=== PATIENT | male | born 1960 | race Caucasian/White ===

== ENCOUNTER → 2017-01-09 | Outpatient (CLI) | payer OTHER ==
[~2017-01-09] MED LIST: AMLO5TAB2 PO; FLUO20CA35 PO; HYDR-5688 PO; METH10TA4 PO; VITAMIN B12 SL
== END | disposition home or self-care (01) ==
LOC: C.LABSPEC 14:57
PROVIDERS: ATTEND Family Medicine
DX: N39.0 Urinary tract infection, site not specified (principal)

== ENCOUNTER → 2017-01-10 | Outpatient (CLI) | payer OTHER ==
--- NOTE | 2017-01-10 07:58 | DIAGNOSTIC IMAGING REPORT ---
Limited abdominal ultrasound ABDOMEN FOR HERNIA CLINICAL HISTORY: L INGUINAL HERNIA, PT TO X-RAY AFTER PLEASE hernia TECHNIQUE: Real-time ultrasound. Post Valsalva COMPARISON STUDY: 10/08/2013 FINDINGS: Fat-containing left inguinal hernia. This is reducible. No evidence of bowel containment. IMPRESSION: Reducible fat-containing left inguinal hernia. No evidence for bowel containment. Electronically signed by: Richard Dupont M.D. 01/10/2017 7:57 AM Dictated Date/Time: 01/10/2017 7:56 AM
--- NOTE | 2017-01-10 08:06 | DIAGNOSTIC IMAGING REPORT ---
[facility]UB CLINICAL HISTORY: L INGUINAL HERNIA, PT WENT TO ULTRA 1,LAB AFTER PLEASE pain COMPARISON STUDY: 10/08/2013 FINDINGS: Small 3 mm calcification lower pole right kidney. Renal study shows otherwise are unremarkable. Bowel pattern is nonobstructive. IMPRESSION: Small calcification lower pole right kidney. Otherwise negative study Electronically signed by: Richard Dupont M.D. 01/10/2017 8:05 AM Dictated Date/Time: 01/10/2017 8:04 AM
[2017-01-10 09:32] LABS: BASO % 0.3 %; BASO ABS # 0.02 K/uL (0-0.2); COMPLETE YES; EOS % 5.6 %; HEMATOCRIT 46.2 % (42-52); IG% 0.2 %; LYMPH % 42.3 %; LYMPH ABS # 2.57 K/uL (1.2-3.4); MEAN CELL VOLUME 90.8 fL (80-100); MEAN CORPUSCULAR HEMOGLOBIN 32.4 pg (25-34); MEAN CORPUSCULAR HGB CONC 35.7 g/dl (32-36); MEAN PLATELET VOLUME 9.5 fL (7.4-10.4); MONO % 10.4 %; NEUT % 41.2 %; PLATELET COUNT 257 K/uL (130-400); RED BLOOD COUNT 5.09 M/uL (4.7-6.1); WHITE BLOOD COUNT 6.07 K/uL (4.8-10.8)
[2017-01-10 09:48] LABS: ALT/SGPT 49 U/L (12-78); AST/SGOT 28 U/L (15-37); BLOOD UREA NITROGEN 17 mg/dl (7-18); BUN/CREATININE RATIO 17.7 (10-20); CALCIUM 8.6 mg/dl (8.5-10.1); CARBON DIOXIDE 22 mmol/L (21-32); CHLORIDE 109 mmol/L (98-107); CREATININE 0.94 mg/dl (0.60-1.40); GLUCOSE 127 mg/dl (70-99); POTASSIUM 3.9 mmol/L (3.5-5.1); SODIUM 142 mmol/L (136-145)
[2017-01-10 09:57] LABS: ALB/GLOB RATIO 1.3 (0.9-2); ALKALINE PHOSPHATASE 86 U/L (45-117); TOTAL IRON BINDING CAPACITY 452 mcg/dl (250-450)
[2017-01-11 23:24] LABS: GLIADIN DEAMIDATED IgA AB 38 UNITS (<20); GLIADIN DEAMIDATED IgG AB 9 UNITS (<20)
[2017-01-14 04:03] LABS: 18KDIGG BAND NONREACTIVE (NONREACTIVE); 23KDIGG BAND NONREACTIVE (NONREACTIVE); 23KDIGM BAND NONREACTIVE (NONREACTIVE); 28KDIGG BAND NONREACTIVE (NONREACTIVE); 30KDIGG BAND NONREACTIVE (NONREACTIVE); 39KDIGG BAND NONREACTIVE (NONREACTIVE); 39KDIGM BAND NONREACTIVE (NONREACTIVE); 41KDIGG BAND NONREACTIVE (NONREACTIVE); 41KDIGM BAND NONREACTIVE (NONREACTIVE); 45KDIGG BAND NONREACTIVE (NONREACTIVE); 58KDIGG BAND NONREACTIVE (NONREACTIVE); 66KDIGG BAND NONREACTIVE (NONREACTIVE); 93KDIGG BAND NONREACTIVE (NONREACTIVE)
== END | disposition home or self-care (01) ==
LOC: C.ULTR 07:18
PROVIDERS: ATTEND Family Medicine
DX: R53.83 Other fatigue (principal); M25.50 Pain in unspecified joint; K40.90 Unilateral inguinal hernia, without obstruction or gangrene, not specified as recurrent

== ENCOUNTER → 2017-02-22 | Outpatient (CLI) | payer OTHER ==
--- NOTE | 2017-02-22 12:56 | EXERCISE STRESS ECHO ---
*NOTICE TO RECEIVING [employer] This information is strictly Confidential and protected under [place] law. [place] law prohibits you from making any further disclosure of this information unless further disclosure is expressly permitted by the written consent of the person to whom it pertains or is authorized by law. A general authorization for the release of medical or other information is not sufficient for this purpose. Hospital accepts no responsibility if the information is made available to any other person, INCLUDING THE PATIENT. Interpretation Summary * Name: LISANDRA RO Study Date: 02/22/2017 10:37 AM BP: 121/91 mmHg * Patient Location: [facility] HR: 79 * : 1960 (M/d/yyyy) Gender: Male Height: 74 in * Age: 56 yrs Ethnicity: [place] Weight: 230 lb * Ordering Physician: Juve Perez * Referring Physician: Juve Perez. * Performed By: Lilliana Bourne RDCS * * Reason For Study: CHEST PAIN * BSA: 2.3 m2 * History: CHEST PAIN * -- Conclusions -- * There is mild concentric left ventricular hypertrophy. * Left ventricular systolic function is normal. * Grade I diastolic dysfunction, (abnormal relaxation pattern). * Diagnostic exercise echocardiogram without evidence of inducible ischemia Procedure Details * ECHOEX, CPT #[id number] Left Ventricular Findings with Stress * Diagnostic exercise echocardiogram without evidence of inducible ischemia Left Ventricle * The left ventricle is normal in size. * There is mild concentric left ventricular hypertrophy. * Ejection Fraction = 50-55%. * Left ventricular systolic function is normal. * Grade I diastolic dysfunction, (abnormal relaxation pattern). * The left ventricular wall motion is normal. Right Ventricle * The right ventricle is normal in size and function. Atria * The left atrial size is normal. * Right atrial size is normal. Mitral Valve * The mitral valve anatomy is normal. * Significant mitral regurgitation is absent. Tricuspid Valve * The tricuspid valve is not well visualized, but is grossly normal. * There is trace tricuspid regurgitation. Aortic Valve * The aortic valve is normal in structure and function. * No hemodynamically significant valvular aortic stenosis. * There is no significant aortic regurgitation. Great Vessels * The aortic root is normal size. * The aortic root and proximal ascending aorta are normal sized. Pericardium * There is no pericardial effusion. Stress Parameters * Normal baseline electrocardiogram. * The stress portion of this study was personally supervised by the undersigned interpreting physician. * Rest heart rate was '79' BPM. * Rest blood pressure was '121/91' * Maximum heart rate achieved was 160 bpm. * Maximum heart rate was 97 % of maximum age-predicted heart rate. * Maximum blood pressure was '217/54' * Total exercise time was '9:00' * Maximum exercise MET level achieved was '10.10' METS * Maximum treadmill speed was '3.40' miles per hour. * Maximum treadmill elevation was '14.00'% grade. * Exercise was terminated due to 'ACHIEVING TARGET HR' Left Ventricular Findings with Stress * Normal baseline EKG without development of ischemic changes. Normal baseline echocardiogram without inducible wall motion abnormalities. Mild dyspnea at peak exertion Estrada treadmill score: 9 (low risk) Normal heart rate recovery MMode 2D Measurements and Calculations IVSd 1.5 cm IVSs 1.8 cm LVIDd 4.2 cm LVIDs 3.0 cm LVPWd 1.2 cm LVPWs 1.6 cm IVS/LVPW 1.2 FS 26.9 % EDV(Teich) 76.7 ml ESV(Teich) 36.1 ml EF(Teich) 52.9 % EDV(cubed) 71.9 ml ESV(cubed) 28.1 ml EF(cubed) 61.0 % % IVS thick 27.2 % % LVPW thick 27.6 % LV mass(C)d 207.5 grams LV mass(C)dI 90.0 grams/m\S\2 LV mass(C)s 201.5 grams LV mass(C)sI 87.4 grams/m\S\2 SV(Teich) 40.6 ml SI(Teich) 17.6 ml/m\S\2 SV(cubed) 43.8 ml SI(cubed) 19.0 ml/m\S\2 Ao root diam 3.7 cm Ao root area 10.6 cm\S\2 LA dimension 3.8 cm LA/Ao 1.0 LVAd ap4 33.8 cm\S\2 LVLd ap4 9.5 cm EDV(MOD-sp4) 99.6 ml EDV(sp4-el) 102.2 ml LVAs ap4 19.9 cm\S\2 LVLs ap4 7.5 cm ESV(MOD-sp4) 48.8 ml ESV(sp4-el) 45.1 ml EF(MOD-sp4) 51.1 % EF(sp4-el) 55.9 % LVAd ap2 33.0 cm\S\2 LVLd ap2 9.2 cm EDV(MOD-sp2) 99.1 ml EDV(sp2-el) 101.3 ml LVAs ap2 21.0 cm\S\2 LVLs ap2 7.6 cm ESV(MOD-sp2) 50.6 ml ESV(sp2-el) 49.3 ml EF(MOD-sp2) 49.0 % EF(sp2-el) 51.3 % LVLd %diff -3.65 % EDV(MOD-bp) 98.6 ml LVLs %diff 1.4 % ESV(MOD-bp) 50.2 ml EF(MOD-bp) 49.1 % SV(MOD-sp4) 50.9 ml SI(MOD-sp4) 22.1 ml/m\S\2 SV(MOD-sp2) 48.5 ml SI(MOD-sp2) 21.0 ml/m\S\2 SV(MOD-bp) 48.4 ml SI(MOD-bp) 21.0 ml/m\S\2 SV(sp4-el) 57.1 ml SI(sp4-el) 24.8 ml/m\S\2 SV(sp2-el) 51.9 ml SI(sp2-el) 22.5 ml/m\S\2 Doppler Measurements and Calculations MV E max zee 56.8 cm/sec MV A max zee 63.5 cm/sec MV E/A 0.89 MV dec time 0.23 sec Ao V2 max 129.9 cm/sec Ao max PG 6.8 mmHg Ao max PG (full) 3.1 mmHg LV V1 max PG 3.7 mmHg LV V1 max 96.0 cm/sec
== END | disposition home or self-care (01) ==
LOC: C.CPL 10:12
PROVIDERS: ATTEND Family Medicine
DX: R07.9 Chest pain, unspecified (principal)

== ENCOUNTER → 2017-03-21 | Day surgery (SDC) | payer OTHER ==
[2017-02-22 13:28] VITALS: Ht 190.5 cm; Wt 102.3 kg
[~2017-03-21] VITALS: Ht 190.5 cm; Wt 102.3 kg
[~2017-03-21] MED LIST changes: +ALBUTEROL HFA INHALER 8.5 GM INH ONE; +ATROPINE SULFATE 0.1 MG/ML 5ML SYR IV PRN; +BUPIVACAINE/EPINEPHRINE 0.5% MPF 1:200,000 30 ML VIAL ONE; +CEFAZOLIN 2000 MG/60 ML D5W IV SCH; +DEXAMETHASONE SOD INJ 4 MG/ML VIAL ONE; +EpHEDrine SULFATE 50MG/5ML SYR ONE; +EpHEDrine SULFATE INJ 50 MG/ML AMP IV PRN; +FENTANYL CITRATE INJ 50 MCG/1 ML 2 ML VIAL IV PRN; +FENTANYL CITRATE INJ 50 MCG/1 ML 2 ML VIAL ONE; +HYDROCODONE/ACETAMOPHEN 5/325MG TAB PO PRN; +LACTATED RINGER'S 1000ML 1,000 ML IV SCH; +LIDOCAINE HCL 2% 2 ML VIAL (20MG/ML) ONE; +MIDAZOLAM HCL 1 MG/ML 2ML VIAL ONE; +NURSING VERBAL MED ORDER ONE; +ONDANSETRON INJ 2 MG/ML 2 ML VIAL IV PRN; +ONDANSETRON INJ 2 MG/ML 2 ML VIAL ONE; +PROPOFOL IV EMULSION 10 MG/ML 20 ML VIAL IV ONE; +SODIUM CHLORIDE 0.9% 1000ML 1,000 ML IV SCH
--- NOTE | 2017-03-21 09:34 | History & Physical Bridge Note ---
H&P Re-Evaluation Bridge Note: I have examined the patient, reviewed the History & Physical and in the interval since the performance of the History & Physical I have noted the following changes of clinical significance: No changes noted
--- NOTE | 2017-03-21 09:54 | Discharge Instructions ---
Discharge Instructions Date of Service Mar 21, 2017. Admission Reason for Admission: Left Inguinal Hernia Discharge Discharge Diagnosis / Problem: Left Inguinal Hernia Discharge Goals Goal(s): Decrease discomfort, Improve function Activity Recommendations Activity Limitations: as noted below Lifting Limitations: no more than 10 pounds Exercise/Sports Limitations: until after follow-up appointment May Resume Sexual Activity: after follow-up appointment Shower/Bathe: tomorrow . Instructions / Follow-Up Instructions / Follow-Up Please follow-up with Dr. Killian in the office in 1-2 weeks. Please call the office at [phone] with any questions or concerns. Current Hospital Diet Patient's current hospital diet: Discharge Diet Recommended Diet: Regular Diet Pending Studies Studies pending at discharge: no Medical Emergencies . Who to Call and When: Medical Emergencies: If at any time you feel your situation is an emergency, please call 911 immediately. . Non-Emergent Contact Non-Emergency issues call your: Primary Care Provider, Surgeon Call Non-Emergent contact if: temperature is above 101.5, your pain is not controlled, wound has increased drainage, wound has increased redness . "Provider Documentation" section prepared by Leatha Griffith. . VTE Core Measure Inpt VTE Proph given/why not?: SCD's
--- NOTE | 2017-03-21 11:01 | [facility] Operative Report ---
Operative Report Operative Date Mar 21, 2017. Pre-Operative Diagnosis Left inguinal hernia Post-Operative Diagnosis direct and indirect left inguinal hernias Procedure(s) Performed open left inguinal hernia repair with mesh Surgeon Dr. Killian Supply Assistant Surgeon(s) Leatha Holly PA-C Estimated Blood Loss 10 mL Findings direct and indirect left inguinal hernias. Specimens None Anesthesia LMA Complication(s) None Disposition Recovery Room / PACU I attest to the content of the Intraoperative Record and any orders documented therein. Any exceptions are noted below.
--- NOTE | 2017-03-21 11:06 | Anesthesia Progress Nt - [facility] ---
Anesthesia Post Op Note Date & Time Mar 21, 2017 at 11:05 Vital Signs Pain Intensity: 0 Vital Signs Past 12 Hours Date Time Temp Pulse Resp B/P Pulse Ox O2 Delivery O2 Flow Rate FiO2 03/21/17 08:11 36.7 81 16 121/92 95 Room Air Notes Mental Status: alert / awake / arousable, participated in evaluation Pt Amnestic to Procedure: Yes Nausea / Vomiting: adequately controlled Pain: adequately controlled Airway Patency, RR, SpO2: stable & adequate BP & HR: stable & adequate Hydration State: stable & adequate Anesthetic Complications: no major complications apparent
[2017-03-21 11:35] VITALS: TEMP 36.7
--- NOTE | 2017-03-21 11:47 | OPERATIVE REPORT ---
DATE OF OPERATION: 03/21/2017 PREOPERATIVE DIAGNOSIS: Left inguinal hernia. POSTOPERATIVE DIAGNOSIS: Direct and indirect left inguinal hernia. PROCEDURES: Open left inguinal hernia repair with mesh and ilioinguinal neurolysis. SURGEON: Dr. Killian. HYDRAULIC REPAIRER: Leatha Griffith PA-C. ESTIMATED BLOOD LOSS: Approximately 10 mL. COMPLICATIONS: No immediate. ANESTHESIA: General with laryngeal mask airway. OPERATION AND FINDINGS: OPERATIVE NOTE: After informed consent was obtained, the patient was taken to the operating suite and placed in supine position. After successful placement of laryngeal mask airway left groin was shaved and sterilely prepped and draped in usual fashion. An inguinal incision was made with a 15 blade scalpel and carried down through the soft tissue using electrocautery. The external oblique aponeurosis was skeletonized and a small incision made with a fresh blade. Metzenbaum scissors were used to extend this down through the external ring as well as for several centimeters proximally. Once in the inguinal canal, we were able to bluntly dissect the cord and cord structures away from surrounding tissue. We were able to gently elevate off the pubic bone and place a Moselle around it. Once we did this, we immediately noted a moderate sized direct inguinal hernia. We then used blunt dissection and small amounts of electrocautery to examine the cord itself. There was a small indirect hernia sac as well which were able to gently peel away from the cord structures and dunk it back down into the abdominal cavity. No other abnormalities were seen. Following this, we placed a piece of polypropylene mesh as an onlay. It was a pre-keyholed mesh that was secured distally to Quinn's ligament, laterally along the shelving portion of Poupart's ligament and medially along the midline musculature. The "arms" of the mesh were wrapped around behind the cord and cord structures and sutured to underlying muscle. The suture used for the mesh was 0 Ethibond. We thoroughly irrigated the wound. The mesh did not impinge upon the cord structures. We did place Marcaine around the edges of the mesh for postoperative analgesia. There was adequate hemostasis at the end of the case. We closed the external oblique aponeurosis with 2-0 Vicryl in a running fashion. Soft tissue was irrigated and closed with 3-0 Vicryl and the skin closed with 4-0 Monocryl. Some additional Marcaine was injected for postoperative analgesia and skin glue used as a dressing. The patient was awakened, extubated, and transferred to recovery room in stable condition. I attest to the content of the Intraoperative Record and any orders documented therein. Any exceptio ns are noted below.
[2017-03-21 12:10] VITALS: BP 129/88; PULSE 84; O2SAT 94
--- NOTE | 2017-03-21 12:58 | Anesthesiology Progress Note ---
Anesthesia Progress Note Date of Service Mar 21, 2017. Progress Notes Pt s/p L inguinal hernia repair. Pt received bupivacaine with epi for local at the site of incision towards the end of procedure. Pt stated having signs of a L femoral nerve block in recovery. Pt and family were told about the likelihood of inadvertent L femoral nerve block, which should last approximately 8 hours. The pt was instructed to go home with crutches and to use crutches for ambulation until his symptoms resolved. Pt is otherwise stable for discharge.
== END | disposition home or self-care (01) ==
LOC: X.SURG 08:01
PROVIDERS: ATTEND Surgery
DX: K40.90 Unilateral inguinal hernia, without obstruction or gangrene, not specified as recurrent (principal); Z68.28 Body mass index [BMI] 28.0-28.9, adult; Z98.890 Other specified postprocedural states; Z82.49 Family history of ischemic heart disease and other diseases of the circulatory system; Z83.3 Family history of diabetes mellitus

== ENCOUNTER → 2018-04-05 | Outpatient (CLI) | payer OTHER ==
[~2018-04-05] MED LIST changes: -ALBUTEROL HFA INHALER 8.5 GM INH ONE; -ATROPINE SULFATE 0.1 MG/ML 5ML SYR IV PRN; -BUPIVACAINE/EPINEPHRINE 0.5% MPF 1:200,000 30 ML VIAL ONE; -CEFAZOLIN 2000 MG/60 ML D5W IV SCH; -DEXAMETHASONE SOD INJ 4 MG/ML VIAL ONE; -EpHEDrine SULFATE 50MG/5ML SYR ONE; -EpHEDrine SULFATE INJ 50 MG/ML AMP IV PRN; -FENTANYL CITRATE INJ 50 MCG/1 ML 2 ML VIAL IV PRN; -FENTANYL CITRATE INJ 50 MCG/1 ML 2 ML VIAL ONE; -HYDR-5688 PO; -HYDROCODONE/ACETAMOPHEN 5/325MG TAB PO PRN; -LACTATED RINGER'S 1000ML 1,000 ML IV SCH; -LIDOCAINE HCL 2% 2 ML VIAL (20MG/ML) ONE; -MIDAZOLAM HCL 1 MG/ML 2ML VIAL ONE; -NURSING VERBAL MED ORDER ONE; -ONDANSETRON INJ 2 MG/ML 2 ML VIAL IV PRN; -ONDANSETRON INJ 2 MG/ML 2 ML VIAL ONE; -PROPOFOL IV EMULSION 10 MG/ML 20 ML VIAL IV ONE; -SODIUM CHLORIDE 0.9% 1000ML 1,000 ML IV SCH
[2018-04-05 15:45] LABS: BASO % 0.3 %; BASO ABS # 0.02 K/uL (0-0.2); EOS % 4.3 %; EOS ABS # 0.27 K/uL (0-0.5); HEMATOCRIT 44.8 % (42-52); HEMOGLOBIN 16.3 g/dL (14.0-18.0); IG# 0.01 K/uL (0.00-0.02); LYMPH % 29.6 %; LYMPH ABS # 1.85 K/uL (1.2-3.4); MEAN CELL VOLUME 91.6 fL (80-100); MEAN CORPUSCULAR HEMOGLOBIN 33.3 pg (25-34); MEAN CORPUSCULAR HGB CONC 36.4 g/dl (32-36); MEAN PLATELET VOLUME 9.9 fL (7.4-10.4); MONO % 11.1 %; MONO ABS # 0.69 K/uL (0.11-0.59); NEUT % 54.5 %; PLATELET COUNT 226 K/uL (130-400); RED CELL DISTRIBUTION WIDTH CV 13.3 % (11.5-14.5); RED CELL DISTRIBUTION WIDTH SD 44.2 fL (36.4-46.3); WHITE BLOOD COUNT 6.24 K/uL (4.8-10.8)
[2018-04-05 16:46] LABS: ALT/SGPT 43 U/L (12-78); AST/SGOT 27 U/L (15-37); BLOOD UREA NITROGEN 14 mg/dl (7-18); CALCIUM 8.4 mg/dl (8.5-10.1); CARBON DIOXIDE 24 mmol/L (21-32); CHOLESTEROL 232 mg/dl (0-200); CREATININE 0.93 mg/dl (0.60-1.40); GLUCOSE 118 mg/dl (70-99); POTASSIUM 3.5 mmol/L (3.5-5.1); SODIUM 138 mmol/L (136-145); TOTAL PROTEIN 7.4 gm/dl (6.4-8.2); URIC ACID 7.1 mg/dl (2.6-7.2)
[2018-04-05 16:55] LABS: ALKALINE PHOSPHATASE 90 U/L (45-117); LDL CHOLESTEROL CALCULATED 150 mg/dl; TRANSFERRIN 327 mg/dl (200-360)
[2018-04-06 06:33] LABS: HEMOGLOBIN A1C 5.4 % (4.5-5.6)
== END | disposition home or self-care (01) ==
LOC: C.LAB 14:05
PROVIDERS: ATTEND Family Medicine
DX: R73.09 Other abnormal glucose (principal); E55.9 Vitamin D deficiency, unspecified; D51.9 Vitamin B12 deficiency anemia, unspecified; E78.9 Disorder of lipoprotein metabolism, unspecified; R53.83 Other fatigue

== ENCOUNTER 2021-01-08 08:33 | Observation (INO) ==
--- NOTE | 2020-12-24 14:51 | PAT Medication Instructions ---
Medication Instructions Date of Service December 24, 2020 Home Medications Medication Instructions Recorded meloxicam 15 mg tablet 15 mg PO DAILY #30 tab 12/04/20 amlodipine 2.5 mg PO QAM fluoxetine 20 mg PO QAM methylphenidate HCl 10 mg PO BID meloxicam 15 mg tablet 15 mg PO DAILY Cholesterol Medication 1 tab PO QAM ASK your surgeon for instructions meloxicam 15 mg tablet 15 mg PO DAILY DO NOT take the morning of surgery methylphenidate HCl 10 mg PO BID Take morning of surgery With a small sip of water, OTHERWISE NOTHING TO EAT OR DRINK AFTER MIDNIGHT: amlodipine 2.5 mg PO QAM fluoxetine 20 mg PO QAM Take evening before surgery methylphenidate HCl 10 mg PO BID Other Notes Please contact us with further information regarding following medication: Cholesterol Medication 1 tab PO QAM If you have any questions please call us at [phone] or [phone] or [phone] or [phone]
--- NOTE | 2020-12-28 08:28 | Anesthesiology Consultation ---
Date of Service December 28, 2020 Assessment & Plan (1) Encounter for pre-operative examination: COVID Status: As of 12/28 assessment, patient denies travel to endemic area, known exposure/sick contacts, or symptoms of COVID19. Patient instructed that they and their household members must follow strict social distancing guidelines, wear a mask in public and avoid travel/events/gatherings for 14 days prior to surgery. Preoperative COVID19 testing to be completed prior to surgery per surgeon's arrangements (01/04). Patient made aware to self-isolate as much as possible between COVID testing and surgery. Patient Chart Review Chart Review: Acceptable Risk for Surgery and Patient seen in Pre Admission Testing Teaching & Discussion Instructed NPO after midnight before surgery, except medications with 15 cc of water. Medication instructions provided according to the PAT guidelines. History Surgery Operation Date: 01/08/21 09:35 Proposed Procedures p Right Total Knee Arthroplasty - Hermilo Henry MD Height/Weight Height: 6 ft 2 in Weight: 119.2 kg Allergies Allergy/AdvReac Type Severity Reaction Status Date / Time No Known Allergies Allergy Unknown Verified 12/24/20 07:38 Medications Home Medications Medication Instructions Recorded Confirmed Last Taken amlodipine 2.5 mg PO QAM 04/25/19 12/24/20 05/09/19 fluoxetine 20 mg PO QAM 04/25/19 12/24/20 05/09/19 methylphenidate HCl 10 mg PO BID 04/25/19 12/24/20 05/09/19 meloxicam 15 mg tablet 15 mg PO DAILY #30 tab 12/04/20 12/24/20 Unknown atorvastatin 40 mg PO QAM 12/28/20 12/28/20 Unknown Past Medical History Medical History Attention deficit disorder (ADD) History of kidney stones Hyperlipidemia Hypertension Restless leg syndrome Exercise / Class Metabolic Activity II 4-5 Yardwork/Stairs/Walk up hill Past Family History Family History Sister Family history of diabetes mellitus Grandmother (Paternal) Family history of diabetes mellitus Grandmother (Maternal) Family history of diabetes mellitus Past Surgical History Surgical History H/O knee surgery RT/LEFT KNEE (MULTIPLE SURGERIES) H/O wrist surgery LEFT History of arthroscopy History of colonoscopy History of cystoscopy REMOVAL OF KIDNEY STONES WITH STENTS History of herniorrhaphy INGUINAL History of lithotripsy History of tonsillectomy History of tooth extraction Hx of LASIK Past Anesthesia History No Hx of Anesthesia Complications and No Family Hx of Anesthesia Complications History of PONV No Hx of PONV and Hx of Motion Sickness Social History Smoking Status: Never smoker Do You Dip or Chew Tobacco: No Hx Alcohol Use: No Hx Substance Use: No substance use type: does not use Review of Systems Pt denies any recent chest pain, shortness of breath, palpitations, fever, URI, or uncontrolled acid reflux. +chronic cough, takes Mucinex OTC Physical Exam Vital Signs BP: 114/83 P: 85bpm SPO2: 95% RA T: 98.2 F R: 16 ENMT Mouth: + dental restorations (three crowns, R side upper and lower); no chipped teeth and no loose teeth Thyromental Distance: > or= 3.5 Finger Breadths Mallampati Class: I Neck normal visual inspection; neck extension not limited Respiratory normal respiratory effort, lungs clear to auscultation Cardiovascular RRR, no murmur, no edema Testing Laboratory Results PT 10.9 Seconds (9.0-12.0) 12/28/20 08:40 INR 1.0 (0.9-1.1) 12/28/20 08:40 APTT 28.0 Seconds (21.0-31.0) 12/28/20 08:40 Blood Type A Positive 12/28/20 08:40 Antibody Screen NEGATIVE 12/28/20 08:40 11/24/20 WBC: 7.46 H/H: 15.7/47.5 PLATELETS: 229 SODIUM: 143 POTASSIUM: 4.8 CHLORIDE: 107 CO2: 25 BUN: 15 CREATININE: 1.10 GLUCOSE: 114 Electrocardiogram Date: 12/28/20 Findings: + NSR @ (83bpm) Chest X-Ray Date: 12/28/20 Findings: + NAD
--- NOTE | 2020-12-28 09:14 | XRay Report ---
XR chest Pre-admission PA/Lat CLINICAL HISTORY: Preoperative evaluation. COMPARISON STUDY: Chest radiograph April 24, 2019. FINDINGS: Lung volumes are normal. Lungs are clear. There is no pneumothorax or pleural effusion. Car diac size is normal. Mediastinal contours are normal. There is no evidence for pulmonary edema. IMPRESSION: No acute cardiopulmonary findings. ACT 112: Negative or not required by law. Electronically signed by: Flavio De Jesus M.D. 12/28/2020 9:13 AM
[2020-12-28 09:22] LABS: Prothrombin Time 10.9 Seconds (9.0-12.0)
--- NOTE | 2020-12-28 13:30 | Electrocardiogram Report ---
Test Reason : Blood Pressure : / mmHG Vent. Rate : 083 BPM Atrial Rate : 083 BPM P-R Int : 178 ms QRS Dur : 088 ms QT Int : 356 ms P-R-T Axes : 066 068 048 degrees QTc Int : 418 ms Normal sinus rhythm Normal ECG When compared with ECG of 24-APR-2019 17:33, No significant change was found Confirmed by Allan Arcos ([id number]) on 12/28/2020 1:30:37 PM Referred By: Hermilo Henry Confirmed By:Allan Arcos
--- NOTE | 2021-01-02 13:52 | History and Physical Report ---
DATE OF ADMISSION: 01/08/2021 CHIEF COMPLAINT: Right knee pain discomfort and swelling. HISTORY OF PRESENT ILLNESS: A 60-year-old gentleman who has had a long history of right knee problem. He injured his knee initially back in the early 80s and had a pretty extensive reconstruction done in [place] in 1979. He has had intermittent problems with his knee ever since. He has had this knee scoped 3 or [address] Barr. The last time over 10 years ago. He has continued to be bothered by pain and discomfort. Injections have become less successful over time. He is just kind of fed up with this and would like to have his knee fixed. He is not interested in any further conservative care. Knee hurts him all the time. The more he walks, the more it hurts, the more it swells and the more he limps. PAST MEDICAL HISTORY: 1. Elevated cholesterol. 2. Hiatal hernia. 3. Sciatica. 4. Kidney stones. PAST SURGICAL HISTORY: Include: 1. Multiple right knee surgeries, the first one done in 1979 and 3-4 scopes after that. 2. Wrist surgery. 3. Hand surgery. ALLERGIES: None. CURRENT MEDICATIONS: Include: 1. Methylphenidate 10 mg a day. 2. Flomax. 3. Cholesterol medicine. SOCIAL HISTORY: A 60-year-old male. Fairly active. He swims regularly. Does not smoke. No alcohol intake. FAMILY HISTORY: Noncontributory. REVIEW OF HISTORY: Negative for diabetes, neurologic problem, vascular problems or bleeding disorders. No chest pain or shortness of breath. No history of DVT or PE. No known bleeding problems. PHYSICAL EXAMINATION GENERAL: Healthy, pleasant, middle-aged male. Looks to be in good health. HEENT: Benign. NECK: Supple with no lymphadenopathy. LUNGS: Clear to auscultation. HEART: Has a regular rate and rhythm. ABDOMEN: Soft, nontender, nondistended. EXTREMITIES: Grossly neurovascularly intact except as follows. Examination of the right knee reveals the patient ambulates with a slight bit of a limp. He has got multiple large and long incisions on his knee one anterior medial with deviation of the medial side and then one more laterally. He has got a small knee effusion. Range of motion is about 10 degrees short of full extension to 120 degrees of flexion. He has got a little bit of laxity to Ce testing. No real varus or valgus instability. No pain with hip motion. X-RAYS: X-rays of the right knee reviewed. X-rays show advanced right knee tricompartment DJD. He has got degenerative changes in all 3 compartments with chondrocalcinosis. He has got osteophytes in all 3 compartments. He has evidence of previous ACL reconstruction with the tibial tunnel fairly anterior. ASSESSMENT: A 60-year-old male with a history of multiple knee operations in the past with advanced tricompartment degenerative joint disease. He has failed all conservative treatment and would like to have his right knee replaced. PLAN: We will take him to the operating room and do right total knee replacement. The risks and benefits of this procedure were explained to the patient including but not limited to DVT, PE, , infection, neurological injury, vascular injury, bleeding problem, pain, limited range of motion, stiffness, failure to his relieve symptoms, incomplete relief of symptoms, need for further surgery in future, fracture, leg length inequality, nerve palsy, etc. The patient understands and desires to proceed. Informed consent was obtained. As far as incisions, we will likely use a more medial one, I think lateral once too far lateral fluoroscopy used for knee replacement. We will likely put some vancomycin in his cement due to his history of multiple knee surgeries on this side. He is planning to be discharged home using [facility] home health program.
[~2021-01-08 08:33] MED LIST changes: +ACETAMINOPHEN 500 MG TAB PO SCH; -AMLO5TAB2 PO; +BUPIVACAINE 0.5 % 5 MG/1 ML PF 10ML VIAL ONE; +BUPIVACAINE LIPOSOME/PF 266 MG, BUPIVACAINE/EPINEPHRINE 50 ML, SODIUM CHLORIDE 0.9% 30 ... INFIL SCH; +FAMOTIDINE 20 MG TAB PO SCH; -FLUO20CA35 PO; +GABAPENTIN 600 MG DOSE PO SCH; +LR 500ML BOLUS, THEN 15ML/HR IV SCH; +LR 60ML/HR IV SCH; -METH10TA4 PO; +METOCLOPRAMIDE HCL 10 MG TABLET PO SCH; +ROPIVACAINE 0.5% 5 MG/ML 30 ML VIAL ONE; +TRANEXAMIC ACID / 0.7% NACL 1,000 MG/100 ML BAG IV SCH; -VITAMIN B12 SL
--- NOTE | 2021-01-08 08:43 | History & Physical Bridge Note ---
Date of Service January 08, 2021 History & Physical Bridge Note I have examined the patient, reviewed the History & Physical and in the interval since the performance of the History & Physical I have noted the following changes of clinical significance: no changes noted
[2021-01-08] MEDS ORDERED: LIDOCAINE 2% 20 MG/ML 5 ML SYR IV ONE (09:15)
[2021-01-08] MEDS ORDERED: ONDANSETRON INJ 2 MG/ML 2 ML VIAL ONE (09:15)
[2021-01-08] MEDS ORDERED: PROPOFOL IV EMULSION 10 MG/ML 20 ML VIAL IV ONE (09:15)
[2021-01-08] MEDS ORDERED: MIDAZOLAM HCL 1 MG/ML 2ML VIAL ONE (09:16)
[2021-01-08] MEDS ORDERED: ATROPINE SULFATE 0.1 MG/ML 10ML SYR IV PRN (10:11)
[2021-01-08] MEDS ORDERED: ePHEDrine sulfate 50 MG/ML AMP IV PRN (10:11)
[2021-01-08] MEDS ORDERED: HYDROmorphone INJ 1 MG/ML SYRINGE IV PRN (10:11)
[2021-01-08] MEDS ORDERED: ONDANSETRON INJ 2 MG/ML 2 ML VIAL IV PRN ×2 (10:11→14:13)
[2021-01-08] MEDS ORDERED: KETOROLAC 30 MG/ML VIAL IV PRN (10:11)
[2021-01-08] MEDS ORDERED: BUPIVACAINE LIPOSOME 1.3% 266 MG/20 ML VIAL ONE (10:39)
[2021-01-08] MEDS ORDERED: BUPIVACAINE 0.25% 30 ML VIAL ONE (10:39)
[2021-01-08] MEDS ORDERED: BACITRACIN INJ 50,000 UNIT VIAL ONE (10:39)
[2021-01-08] MEDS ORDERED: SODIUM CHLORIDE 0.9% PF 50 ML VIAL ONE (10:39)
[2021-01-08] MEDS ORDERED: EPINEPHrine INJ 1 MG/ML AMP ONE (10:39)
[2021-01-08] MEDS: ceFAZolin 2000MG 2,000 MG/15 ML SYR IV SCH ×2 (10:51→18:07)
[2021-01-08] MEDS ORDERED: VANCOMYCIN HCL 1000MG/20ML VIAL ONE (11:24)
[2021-01-08] MEDS ORDERED: ceFAZolin 1000MG 1,000 MG/7.5 ML SYR IV ONE (11:35)
--- NOTE | 2021-01-08 13:04 | Operative Report ---
Post Operative Report Pre & Post Diagnosis Operation Date: 01/08/21 10:40 Pre-Op Diagnosis: Right Knee Advanced Degenerative Joint Disease Post-Op Diagnosis: Right Knee Advanced Degenerative Joint Disease I identified the patient and participated in the time-out.: Yes Procedure Operation Date: 01/08/21 10:40 Actual Procedures p Right Total Knee Arthroplasty(Right) - Hermilo Henry MD Surgeon Hermilo Henry MD Training Designer ERIC Tesfaye Estimated Blood Loss 75 Findings Consistent with Post-Op Diagnosis Operative findings were advanced right knee DJD. He had extensive grade 4 [id number] disease the medial and some focal grade 4 [id number]-sv-[id number] disease of the lateral and patellofemoral compartments. Moderate-sized joint effusion. Fluids 900 cc. Specimens Right knee sent for pathology. Drains None. Anesthesia Type Spinal MAC Complications none Disposition Accompanied Patient To Recovery: No Disposition: Recovery Room Indications Patient is a 60-year-old gentleman is had a long history of right knee problems. He underwent a very extensive open knee surgery back in the 80s. Since then he has had persistent pain and discomfort in his knee. He had his knee scoped elsewhere at 3 or 4 different times the last one being 10 years ago. He is failed all conservative measures. He elected proceed with total knee arthroplasty. Description of Procedure Operative implants consisted of: 1 Biomet Vanguard size 75 right posterior stabilized femoral component. 2. Biomet size 83 tibial tray. 3. 10 mm posterior stabilized polyethylene insert. 4. 34 x 8 and half all polypatella. The patient was taken the operating identified and placed on the operating table supine position protectors were properly padded. IV antibiotics tried by anesthesia team. A spinal anesthetic and abductor canal block had provided holding area. Lazar catheter was placed in sterile fashion. Right thigh tip was then placed in the right lower extremities and prepped and draped in usual sterile fashion. The right leg was elevated exsanguinated use of an Esmarch and turns placed at 300 mmHg. An anterior approach to the right knee was then performed through a curvilinear incision. I used his previous anterior medial incision but then had to extend the lateral right ankle up over his quad. Sharp dissection was got through subcutaneous tissue down the extensor mechanism. A medial parapatellar arthrotomy incision was made. Some subperiosteal dissection was carried out medially. The fat pad was resected from each patella tendon. The lateral patellofemoral ligament was released. Patella was subluxated laterally and the knee was flexed. The osteophytes were taken off distal femur. The ACL and PCL were then released in the distal femur and the tibia subluxated anteriorly. The external treatment line jig was then placed in the interface the tibia and adjusted 14 mm medially. Proximal tibial cut was made to remove about a millimeter bone from the most deficient aspect of medial tibial plateau. Some osteophytes taken off medial and posterior medially. Tibia sized to a size 83. Attention drawn the femur. The distal femur examined the sharp drop with intramedullary canal was suction. A right 6 degree valgus cutting guide was placed. Distal femoral cutting block was pinned in place but distal femoral cut was made to take an additional 3 mm of bone off distal femur. The femur was then sized to a size 75. The AP cutting block was pinned parallel to the epicondylar axis which was 3 degrees of external rotation. The anterior cut, anterior chamfer, posterior cut, posterior chamfer cuts were made. Box cutting guide was placed in just slight lateral box cut was made. The knee was flexed. The remnants of medial lateral menisci were excised. The osteophytes were taken off the posterior aspect the femur. A trial femoral component was placed. The tibial tray was pinned in maximum external rotation and the drill and stem punch were used to create defect in proximal tibial. We took great care to make sure we were going to run into the staple that had been previously placed. The knee was then trialed and the 10 mm insert fit most appropriately. Attention drawn the patella. The patella was cleaned of all soft tissues. Patella thickness measured 28 mm in thickness was cut down to 15. The patella was sized to a size 34. The lug holes were drilled for 34 patella. The lateral osteophyte is moved. Patella button was placed. Knee was taken through range of motion and the patella tracked nicely with no thumbs test. Attention drawn to placing the permanent components. All trial components were removed. Bone plug was placed in the distal femoral limit blood loss. A double batch of Palacos G cement was mixed. I did add an additional gram of vancomycin due to this patient's had multiple knee surgeries on the side. A [email or web address] size 75 right posterior stabilized femoral component, size 83 tibial tray, a 10 mm posterior stabilized polyethylene insert, and a 34 x 8 and half all polypatella then cemented in place. Knee was brought out in full extension total cement hardened. Final cement check was then performed. The pericapsular tissues were injected with total of 100 cc of combination of 20 cc of Exparel, 30 cc normal saline, 50 cc of quarter percent Marcaine with epinephrine. Patient did receive 1 g tranexamic acid per the tourniquet was then let down for final tourniquet time of 66 minutes. Hemostasis assured use electrocautery. Extensor mechanism closed with combination 1 PDS suture #1 Vicryl suture in [id number] fashion. Extensor mechanism checked found to be intact the subcutaneous tissue then closed with 2 Dexon suture in a buried interrupted fashion skin was closed skin megan. Leg was then cleaned dried a sterile dressing composed Xeroform, 4 x 4's, sterile cast padding, Manuel bandage were applied. Patient then transferred to the recovery room in stable condition. Patient tolerated procedure well and there were no complications. Sylvester Tesfaye, my physician sales assistant displays, was present for the entire procedure. His assistance was essential and required for appropriate patient positioning, prepping and draping, surgical exposure, performing the technical details of the operation, placement the implants, closure of the wound, and placement of the sterile bandage. I attest to the content of the Intraoperative Record and any orders documented therein. Any exceptions are noted below.
--- NOTE | 2021-01-08 13:22 | XRay Report ---
RIGHT KNEE 2 VIEWS History: Right total knee arthroplasty. Degenerative arthritis. Postop. FINDINGS: The patient is status post a right total knee arthroplasty. The hardware is intact. No frac ture or dislocation. Skin megan are in place. Deformity within the legs of the proximal tibial meta llic anchor likely due to the interval right knee prosthesis. IMPRESSION: Right total knee arthroplasty. No evidence for hardware complication. ACT 112: Negative or not required by law. Electronically signed by: Sheldon Albert M.D. 01/08/2021 1:20 PM
--- NOTE | 2021-01-08 13:25 | Anesthesiology Progress Note ---
Date of Service January 08, 2021 Anesthesia Post Procedure Vital Signs Vital Signs: Temp Pulse Pulse Resp BP Pulse Ox 01/08/21 13:15 53 L 18 117/76 94 01/08/21 13:05 51 L 12 126/83 100 01/08/21 12:58 36.6 C 51 L 15 116/61 99 01/08/21 09:04 36.5 C 68 16 134/90 96 Transfer of Care Handoff Completed per policy Notes Mental Status: alert / awake / arousable Patient Amnestic to Procedure: Yes Nausea / Vomiting: adequately controlled Pain: adequately controlled Airway Patency, RR, SpO2: stable & adequate BP & HR: stable & adequate Hydration State: stable & adequate Neuraxial Anesthesia: was administered and sensory block is resolving Anesthetic Complications: no major complications apparent
[2021-01-08] MEDS ORDERED: diphenhydrAMINE Capsule 25 MG CAP PO PRN (14:13)
[2021-01-08] MEDS ORDERED: MAGNESIUM HYDROXIDE SUSP 30 ML UDC PO PRN (14:13)
[2021-01-08] MEDS ORDERED: TAMSULOSIN HCL 0.4 MG CAP PO PRN (14:13)
[2021-01-08] MEDS ORDERED: METOCLOPRAMIDE HCL INJ 5 MG/ML 2 ML VIAL IV PRN (14:13)
[2021-01-08] MEDS ORDERED: NALOXONE HCL 0.4 MG/1 ML VIAL/CARP IV PRN (14:13)
[2021-01-08] MEDS ORDERED: HYDROmorphone INJ 0.5 MG/0.5 ML SYR IV PRN (14:13)
[2021-01-08] MEDS ORDERED: bisacodyL 10 MG SUPP PR PRN (14:13)
[2021-01-08] MEDS: SODIUM CHLORIDE 0.9% 1000ML 1,000 ML IV SCH ×2 (14:30→20:57)
[2021-01-08] MEDS: FERROUS GLUCONATE 324 MG TAB PO SCH (16:06)
[2021-01-08] MEDS: KETOROLAC 30 MG/ML VIAL IV SCH ×2 (16:07→21:00)
[2021-01-08] MEDS: ACETAMINOPHEN 500 MG TAB PO SCH (16:07)
[2021-01-08] MEDS: ASCORBIC ACID 500 MG TAB PO SCH (16:08)
[2021-01-08] MEDS: METHYLPHENIDATE HCL 10 MG TABLET PO SCH (16:09)
[2021-01-08] MEDS: Scopolamine CHECK PATCH PLACEMENT SCH (16:10)
[2021-01-08] MEDS ORDERED: TRANEXAMIC ACID / 0.7% NACL 1,000 MG/100 ML BAG IV SCH (19:00)
[2021-01-08] MEDS: TAPENTADOL HCL ER 50 MG TABCR PO SCH (20:58)
[2021-01-08] MEDS: ASPIRIN 81 MG ECTAB PO SCH (20:59)
[2021-01-08] MEDS: DOCUSATE SODIUM 100 MG CAP PO SCH (20:59)
[2021-01-08] MEDS ORDERED: SENNA 8.6 MG TAB PO SCH (21:00)
[2021-01-09] MEDS: ACETAMINOPHEN 500 MG TAB PO SCH ×2 (00:17→07:25)
[2021-01-09] MEDS: oxyCODONE HCL IR 5 MG TAB (IMMEDIATE RELEASE) PO PRN ×2 (00:17→13:11)
[2021-01-09] MEDS: Scopolamine CHECK PATCH PLACEMENT SCH ×2 (00:18→07:26)
[2021-01-09] MEDS: KETOROLAC 30 MG/ML VIAL IV SCH ×2 (03:07→09:26)
[2021-01-09] MEDS: ceFAZolin 2000MG 2,000 MG/15 ML SYR IV SCH (03:07)
[2021-01-09] MEDS: SODIUM CHLORIDE 0.9% 1000ML 1,000 ML IV SCH (03:16)
[2021-01-09 05:55] LABS: Hematocrit (blood only) 34.6 % (42-52); Mean Corpuscular Hemoglobin 32.4 pg (25-34); Mean Corpuscular Hgb Conc 34.7 g/dL (32-36); Mean Corpuscular Volume 93.5 fL (80-100); Mean Platelet Volume 9.8 fL (7.4-10.4); Platelet Count 199 K/uL (130-400); RDW Coefficient of Variation 13.5 % (11.5-14.5); RDW Standard Deviation 46.3 fL (36.4-46.3); White Blood Count 12.19 K/uL (4.8-10.8)
[2021-01-09 06:27] LABS: BUN Creatinine Ratio 21.7 (10-20); Calcium 7.3 mg/dl (8.5-10.1); Creatinine Clr Calc Pharmacy 100.7 ml/min; Est GFR (Non-African American) 75.1; Potassium 4.1 mmol/L (3.5-5.1)
[2021-01-09] MEDS: ASCORBIC ACID 500 MG TAB PO SCH (07:25)
[2021-01-09] MEDS: METHYLPHENIDATE HCL 10 MG TABLET PO SCH (07:25)
[2021-01-09] MEDS: FERROUS GLUCONATE 324 MG TAB PO SCH (07:25)
[2021-01-09] MEDS ORDERED: dexAMETHasone 4 MG TAB PO SCH (08:00)
[2021-01-09] MEDS ORDERED: MULTIVITAMIN TAB PO SCH (09:00)
[2021-01-09] MEDS ORDERED: FLUoxetine HCL 20 MG CAP PO SCH (09:00)
[2021-01-09] MEDS ORDERED: amLODIPine BESYLATE 5 MG TAB PO SCH (09:00)
[2021-01-09] MEDS ORDERED: ATORVASTATIN 40 MG TAB PO SCH (09:00)
[2021-01-09] MEDS: TAPENTADOL HCL ER 50 MG TABCR PO SCH (09:25)
[2021-01-09] MEDS: DOCUSATE SODIUM 100 MG CAP PO SCH (09:25)
[2021-01-09] MEDS: ASPIRIN 81 MG ECTAB PO SCH (09:25)
--- NOTE | 2021-01-09 09:26 | Progress Notes ---
DATE: 01/09/2021 SUBJECTIVE: A 60-year-old gentleman postop day 1 from right knee replacement. He is doing well. Pain has been very well controlled overnight. No chest pain or shortness of breath. Not feeling dizzy or lightheaded. He would like to go home this afternoon. OBJECTIVE: VITAL SIGNS: Temperature is 36.4. Vital signs stable. GENERAL: Shows a pleasant, middle-aged male. He is sitting up in bed and talking on the phone when I went into his room this morning. LUNGS: Clear to auscultation. HEART: Has a regular rate and rhythm. ABDOMEN: Soft, nontender, nondistended. EXTREMITIES: Grossly neurovascularly intact except as follows. Examination of the right leg reveals the dressing to be clean, dry and intact. His leg is well aligned. He can dorsiflex and plantarflex his foot appropriately. He can do a good straight leg raise. LABORATORY DATA: Hemoglobin 12.0. Hematocrit 34.6. Electrolytes are stable. ASSESSMENT: A 60-year-old gentleman postop day 1 from right knee replacement, doing well. Pain is controlled. He is neurologically intact. PLAN: 1. DVT prophylaxis including thigh-high TEDs, SCDs, and aspirin twice a day. 2. PT/OT. Weight bear as tolerated. Right total knee protocol. 3. Pain control, doing well with current pain regimen. 4. Disposition: Plan to discharge to home with some home health likely later today if doing okay in therapy.
--- NOTE | 2021-01-11 16:01 | Discharge Summary ---
Date of Service January 11, 2021 Discharge Data Consultations 01/08/21 14:13 Consult Case Management - Discharge Planning Routine Procedures Performed Operation Date: 01/08/21 10:40 Actual Procedures p Right Total Knee Arthroplasty(Right) - Hermilo Henry MD Hospital Course (1) Status post total right knee replacement: This patient is a 60 year old male admitted on 01/08/21 and underwent total knee arthroplasty. He tolerated the procedure well and there were no complications. Transferred to the PACU post op and later to the orthopedic floor for further care. He was given ancef for antibiotic prophylaxis. He was also given SARA stockings, SCDs, and aspirin for DVT prophylaxis. Hemoglobin, hematocr it, and vital signs were monitored during his hospital stay and remained stable. Did not require any blood transfusions. There were no complications during his hospital stay. By post op day #1 the patient was tolerating a regular diet, pain was reasonably controlled with oral pain medicine, and he was participating in physical therapy. On post op day #1 the patient was discharged home and set up with home health care. He was given printed discharge instructions including prescriptions for extra strength tylenol, aspirin, and oxycodone. Continue physical therapy, weight bearing as tolerated. Continue SARA stockings. Follow up approximately 2 weeks post op or sooner if there are problems or concerns. Coding Level of Care Code None Diagnoses Status post total right knee replacement Z96.651
== END 2021-01-09 13:35 | disposition home health service (06) ==
LOC: PAT 08:33 → 3E 08:33